=== PATIENT | female | born 1980 | race Caucasian/White ===

== ENCOUNTER 2022-05-09 15:14 | Emergency (ER) | payer BC ==
[2022-05-09 15:25] VITALS: BP 146/97; PULSE 77; RESP 20; TEMP 99.2; BMI 31.2
[2022-05-09] MEDS ORDERED: SODIUM CHLORIDE 1,000 ML IV STA (15:57)
[2022-05-09] MEDS ORDERED: MECLIZINE HCL 25 MG TABLET (FP) PO ONE (16:08)
[2022-05-09] MEDS ORDERED: MECLIZINE HCL 25 MG TABLET (FP) ONE (16:24)
[2022-05-09 17:13] LABS: BASO % 0.6 % (0-2.0); EOS % 2.9 % (0-4.5); HEMATOCRIT 44.5 % (32.4-45.2); HEMOGLOBIN 14.4 GM/dL (10.7-15.3); MCH 27.2 pg (25.7-33.7); MCHC 32.4 g/dl (32.0-36.0); MEAN CELL VOLUME 83.8 fl (80-96); MONO % 5.4 % (3.8-10.2); NEUT % 62.1 % (42.8-82.8); PLATELET COUNT 163 10^3/uL (134-434); RBC 5.31 M/mm3 (3.60-5.2); RDW 13.7 % (11.6-15.6); WHITE BLOOD COUNT 6.1 K/mm3 (4.0-10.0)
[2022-05-09 17:16] LABS: CHLORIDE 107 mmol/L (98-107); SODIUM 138 mmol/L (136-145)
[2022-05-09 17:18] LABS: CALCIUM 9.3 mg/dL (8.5-10.1)
[2022-05-09 17:19] LABS: ALBUMIN 3.9 g/dl (3.4-5.0); ANION GAP 4 MMOL/L (8-16); BLOOD UREA NITROGEN 11.2 mg/dL (7-18); CO2 27 mmol/L (21-32); GLUCOSE,RANDOM 90 mg/dL (74-106); MAGNESIUM 2.2 mg/dL (1.8-2.4)
[2022-05-09 17:22] LABS: CREATININE 0.9 mg/dL (0.55-1.3); SGOT/AST 53 U/L (15-37); SGPT/ALT 32 U/L (13-61)
[2022-05-09 17:23] LABS: BILIRUBIN,TOTAL 0.4 mg/dL (0.2-1); TOT PROT 8.5 g/dl (6.4-8.2)
[2022-05-09 17:25] LABS: ALK PHOS 97 U/L (45-117)
[2022-05-09 18:08] LABS: CHLORIDE 109 mmol/L (98-107); SODIUM 138 mmol/L (136-145)
[2022-05-09 18:11] LABS: ALBUMIN 3.6 g/dl (3.4-5.0); BLOOD UREA NITROGEN 11.2 mg/dL (7-18); CO2 28 mmol/L (21-32); GLUCOSE,RANDOM 73 mg/dL (74-106)
[2022-05-09 18:12] LABS: CALCIUM 8.4 mg/dL (8.5-10.1)
[2022-05-09 18:14] LABS: CREATININE 0.9 mg/dL (0.55-1.3); SGOT/AST 55 U/L (15-37); SGPT/ALT 32 U/L (13-61)
[2022-05-09 18:16] LABS: BILIRUBIN,TOTAL 0.3 mg/dL (0.2-1); TOT PROT 7.7 g/dl (6.4-8.2)
[2022-05-09 18:17] LABS: ALK PHOS 91 U/L (45-117)
[2022-05-09 18:23] LABS: ANION GAP 2 MMOL/L (8-16)
== END 2022-05-09 18:49 | disposition home or self-care (01) ==
LOC: JER 15:14
PROC: 3E0337Z Introduction of Electrolytic and Water Balance Substance into Peripheral Vein, Percutaneous Approach (ICD-10-PCS; principal; 2022-05-09)
DX: R42 Dizziness and giddiness (principal)
CPT/HCPCS: 36415; 80053; 83735; 84132; 84484; 85025; 93005; 93010; 99284-25